=== PATIENT | male | born 1960 | race Two or more races ===

== ENCOUNTER 2018-08-12 13:20 | Inpatient (IN) | payer OTHER ==
[2018-08-12] MEDS ORDERED: IOHEXOL 350mgI/mL 150mL IV ONE (13:21)
[2018-08-12] MEDS ORDERED: Aspirin 81mg Chewable Tab PO STA (13:26)
[2018-08-12] MEDS ORDERED: Aspirin 81mg Chewable Tab ONE (13:35)
--- NOTE | 2018-08-12 13:35 | ED Physician Chart ---
ED Chief Complaint/HPI - Patient Information Date Seen:: 08/12/18 Chief Complaint:: Chest Pain History of Present Illness:: onset x one week of intermittent, sharp, exertional, pleuritic, MS type C/P, SOB , and diaphoresis; pt denies trauma, H/As, S/T, neck pain, cough, Abd. Pain, A/N /V/d/C, fever, chills, or urinary s/s Allergies:: Allergies Allergy/AdvReac Type Severity Reaction Status Date / Time amoxicillin Allergy Verified 02/27/16 12:30 Historian:: Patient Review:: Nurse's Note Reviewed ED Review of Systems - Review of Systems General/Constitutional: No fever, No chills, No weight loss, No weakness, No diaphoresis, No edema, No loss of appetite Skin: No skin lesions, No rash, No bruising Head: No headache, No light-headedness Eyes: No loss of vision, No pain, No diplopia ENT: No earache, No nasal drainage, No sore throat, No tinnitus Neck: No neck pain, No swelling, No thyromegaly, No stiffness, No mass noted Cardio Vascular: Chest pain, No palpitations, No PND, No orthopnea, No edema Pulmonary: SOB, No cough, No sputum, No wheezing GI: No nausea, No vomiting, No diarrhea, No pain, No melena, No hematochezia, No constipation, No hematemesis G/U: No dysuria, No frequency, No hematuria, No nacturia Musculoskeletal: No bone or joint pain, No back pain, No muscle pain Endocrine: No polyuria, No polydipsia Psychiatric: No prior psych history, No depression, No anxiety, No suicidal ideation, No homicidal ideation, No auditory hallucination, No visual hallucination Hematopoietic: No bruising, No lymphadenopathy Allergic/Immuno: No urticaria, No angioedema Neurological: No syncope, No focal symptoms, No weakness, No paresthesia, No headache, No seizure, No dizziness, No confusion, No vertigo ED Past Medical History - Past Medical History Obtainable: Yes Past Medical History: HTN, Other (Anxiety Disorder) Family History: Cancer Social History: Smoker, Alcohol, Illicit Drug Use, Surgical History: None Psychiatricy History: None Medication: Reviewed Family Medical History - Family Member Mother Living Status: Hx Family Cancer: No Hx Family Congestive Heart Failure: No Hx Family Stroke: No Hx Family Diabetes: No Hx Family COPD: No Hx Family Hepatitis: No ED Physical Exam - Physical Examination General/Constitutional: Awake, Well-developed, well-nourished, Alert, No distress, GCS 15, Non-toxic appearing, Ambulatory Head: Atraumatic Eyes: Lids, conjuctiva normal, PERRL, EOMI Skin: Nl inspection, No rash, No skin lesions, No ecchymosis, Well hydrated, No lymphadenopathy ENMT: External ears, nose nl, TM canals nl, Nasal exam nl, Lips, teeth, gums nl , Oropharynx nl, Tonsils nl Neck: Nontender, Full ROM w/o pain, No JVD, No nuchal rigidity, No bruit, No mass, No stridor Respiratory: Nl effort/Exclusion, Clear to Auscultation, No Wheeze/Rhonchi/Rales Cardio Vascular: RRR, No murmur, gallop, rubs, NL S1 S2, Carotid/Femoral/Distal pulses equal bilaterally GI: No tenderness/rebounding/guarding, No organomegaly, No hernia, Normal BS's, Nondistended, No mass/bruits, No McBurney tenderness Other GI comments:: no pulsatile masses : No CVA tenderness Extremities: No tenderness or effusion, Full ROM, normal strength in all extremities, No edema, Normal digits & nails Neuro/Psych: Alert/oriented, DTR's symmetric, Normal sensory exam, Normal motor strength, Judgement/insight normal, Mood normal, Normal gait, No focal deficits Misc: Normal back, No paraspinal tenderness ED Labs/Radiology/EKG Results - Lab Results Comments:: Reviewed - Radiology Results Comments:: CXR: CM; mild CHF; Chest CAT Scan: NAD - EKG Interpretations EKG Time:: 13:24 Rate & Rhythm: 83; NSR Comments:: old ASMI; non-specific st-t changes ED Septic Shock - . Is Septic Shock (SBP<90, OR Lactate>4 mmol\L) present?: No ED Reassessment (Disposition) - Reassessment Reassessment Condition:: Improved - Diagnosis Diagnosis:: Anemia; Hyponatremia; Hypokalemia; Chest Pain; Angina Pectoris; Atypical Chest Pain; Dyspnea; CHF; Hypertension; Diabetes Mellitus; Hyperglycemia - Aftercare/Follow up Instructions Aftercare/Follow-Up Instructions:: Counseled pt regarding lab results/diagnosis & need follow up, Counseled pt & family regarding lab results/diagnosis & need follow up - Patient Disposition Discharge/Transfer:: Acute Care w/in this hosp Accepting Physician:: Dr. Washington Time Called:: [id number] Time Responded:: 15:30 Admitted to:: Telemetry Spoke to:: Dr. Washington Admitting Medical Physician:: Dr. Washington Condition at Disposition:: Stable, Improved
[2018-08-12] MEDS ORDERED: NITROGLYCERIN OINT 2% 1 INCH PACKET TP STA (13:46)
[2018-08-12] MEDS ORDERED: Morphine Sulfate 2 mg/mL 1mL Syr IV STA ×2 (13:47→19:03)
[2018-08-12] MEDS ORDERED: NITROGLYCERIN OINT 2% 1 INCH PACKET TP ONE ×2 (13:47→13:50)
[2018-08-12] MEDS ORDERED: Morphine Sulfate 2 mg/mL 1mL Syr ONE ×2 (13:53→19:26)
[2018-08-12 13:55] LABS: BASOPHILE ABSOLUTE 0.5 Th/cumm (0-0.2); HEMATOCRIT 35.8 % (41.0-60); HEMOGLOBIN 11.4 gm/dL (12-16); LYMPHOCYTE ABSOLUTE 1.1 Th/cmm (1.5-3.0); MEAN CELL VOLUME 76.2 fl (80-99); MEAN CORPUSCULAR HEMOGLOBIN 24.3 pg (26.0-30.0); MEAN CORPUSCULAR HGB CONC 31.9 pg (28.0-36.0); MONOCYTE ABSOLUTE 0.2 Th/cmm (0.3-1.0); NEUTROPHILE ABSOLUTE 6.3 Th/cmm (1.8-8.0); PLATELET COUNT 193 Th/cmm (150-400); RED CELL DISTRIBUTION WIDTH 20.7 % (11.5-20.0); WHITE BLOOD COUNT 8.2 Th/cmm (4.8-10.8)
[2018-08-12 13:56] LABS: % BASOPHILS 5.9 % (0.0-2.0); % EOSINOPHILS 0.9 % (0.0-5.0); % MONOCYTES 2.6 % (2.0-10.0); % NEUTROPHILS 77.6 % (40.0-80.0)
--- NOTE | 2018-08-12 14:01 | Diagnostic Imaging Report ---
CHEST X-RAY: AP view INDICATION: pain COMPARISON: 07/19/2017 FINDINGS: Suboptimal lung bones are noted. There are increased interstitial lung markings. There is no focal consolidation or pleural effusions . Cardiomegaly is noted. Degenerative changes of the spine are noted. IMPRESSION: Increased interstitial lung markings. A mild degree of congestion cannot be excluded. There is faint infiltrate at the left base cannot be excluded. Cardiomegaly.
[2018-08-12 14:03] LABS: INR 0.97 (0.5-1.4); PROTHROMBIN TIME (TEST) 10.1 SECONDS (9.5-11.5)
[2018-08-12 14:06] LABS: BUN - UREA NITROGEN 6 mg/dL (7-25); CALCIUM SERUM 9.1 mg/dL (8.6-10.3); CHLORIDE 97 mEq/L (98-107); CHOLESTEROL 99 mg/dL (<200); CREATININE - SERUM 0.6 mg/dL (0.7-1.3); CREATININE KINASE 80 U/L (30-223); GFR AFRICAN-AMERICAN > 60.0 ml/min (>90); GFR NON AFRICAN-AMERICAN > 60.0 ml/min; GLUCOSE 200 mg/dL (70-105); HDL -HIGH DENSITY LIPOPROTEIN 57 mg/dL (23-92); SODIUM SERUM 135 mEq/L (136-145); TRIGLYCERIDES 40 mg/dL (<150)
[2018-08-12] MEDS ORDERED: Potassium Chloride 20 mEq ER Tab PO ONE ×2 (14:14→14:16)
[2018-08-12 14:22] LABS: DDIMER QUANT 759 ng/mL (100-400)
[2018-08-12 20:24] VITALS: BP 162/100
[2018-08-13 05:03] LABS: % BASOPHILS 0.5 % (0.0-2.0); % EOSINOPHILS 1.6 % (0.0-5.0); % LYMPHOCYTES 18.6 % (20.0-50.0); % MONOCYTES 7.3 % (2.0-10.0); EOSINOPHILE ABSOLUTE 0.1 Th/cmm (0.1-0.4); HEMATOCRIT 34.3 % (41.0-60); HEMOGLOBIN 10.8 gm/dL (12-16); LYMPHOCYTE ABSOLUTE 1.4 Th/cmm (1.5-3.0); MEAN CORPUSCULAR HGB CONC 31.6 pg (28.0-36.0); MEAN PLATELET VOLUME 9.5 fl; MONOCYTE ABSOLUTE 0.5 Th/cmm (0.3-1.0); NEUTROPHILE ABSOLUTE 5.4 Th/cmm (1.8-8.0); PLATELET COUNT 197 Th/cmm (150-400); RED BLOOD COUNT 4.52 Mil/cmm (4.30-5.70); RED CELL DISTRIBUTION WIDTH 21.5 % (11.5-20.0); WHITE BLOOD COUNT 7.4 Th/cmm (4.8-10.8)
[2018-08-13 05:09] LABS: ALB/GLOB RATIO 1.1 (1.0-1.8); ALBUMIN 3.3 gm/dL (4.2-5.5); ALKALINE PHOSPHATASE 143 U/L (34-104); ANION GAP 12.2 (7.0-16.0); BILIRUBIN,TOTAL 0.7 mg/dL (0.3-1.0); BUN - UREA NITROGEN 6 mg/dL (7-25); CALCIUM SERUM 9.1 mg/dL (8.6-10.3); CARBON DIOXIDE 29.3 mEq/L (21.0-31.0); CHLORIDE 99 mEq/L (98-107); CREATININE - SERUM 0.6 mg/dL (0.7-1.3); GFR AFRICAN-AMERICAN > 60.0 ml/min (>90); GFR NON AFRICAN-AMERICAN > 60.0 ml/min; GLUCOSE 127 mg/dL (70-105); POTASSIUM SERUM 3.5 mEq/L (3.5-5.1); SGOT 46 U/L (13-39); SGPT/ALT 31 U/L (7-52); SODIUM SERUM 137 mEq/L (136-145); TOTAL PROTEIN,SERUM 6.4 gm/dL (6.0-8.3)
[2018-08-13] MEDS ORDERED: Non-Formulary Item 1 EA (Alprazolam [Xanax*] 1 MG) PO PRN (07:19)
[2018-08-13] MEDS ORDERED: GABAPENTIN 800 MG PO PRN (07:19)
--- NOTE | 2018-08-13 07:32 | History and Physical ---
History of Present Illness - HPI Chief Complaint: chest pain HPI: 58 y/o male who presents to [facility] ER for onset x one week of intermittent, sharp, exertional, pleuritic, MS type C/P, SOB, and diaphoresis; pt denies trauma, H/As, S/T, neck pain, cough, Abd. Pain, A/N/V/d/C, fever, chills, or urinary s/s. PMH includes HTN, Anxiety Disorder, Initial labwork done in the ER CBC 8.2 H/H 11.4/35.8 platelets 193K Na 135 K 3.0 Bun/Cr 6/0.6 glu 200 CK 80 trop 0.02 BNP 180 chol 99 LDL 28 HDL 57 trig 99 Patient was subsequently admitted for further evaluation and treatment. Vital Signs: Last Vital Signs Temp 96.4 F 08/13/18 04:00 Pulse 73 08/13/18 04:00 Resp 18 08/13/18 04:00 BP 172/101 08/13/18 04:00 Pulse Ox 98 08/13/18 04:00 Past Medical History Cardiovascular: Report: HTN Pulmonary: Report: No Pertinent Hx ATMOSPHERIC PHYSICIST: Report: No Pertinent Hx GI: Report: No Pertinent Hx Psych: Report: Anxiety Musculoskeletal: Report: No Pertinent Hx Rheumatologic: Report: No pertinent Hx Infectious Disease: Report: No Pertinent Hx Renal/: Report: No Pertinent Hx Endocrine: Report: No Pertinent Hx Dermatology: Report: No Pertinent Hx Family Medical History - Family Member Mother History Unknown: Yes Living Status: Hx Family Cancer: No Hx Family Congestive Heart Failure: No Hx Family Stroke: No Hx Family Diabetes: No Hx Family COPD: No Hx Family Hepatitis: No Social History Smoke: No Alcohol: None Drugs: None Lives: Alone - Medications Home Medications: Home Medication Medication Instructions Recorded Type Alprazolam [Xanax*] 1 mg PO TID PRN 08/12/18 History Duloxetine HCl [Cymbalta] 60 mg PO DAILY 08/12/18 History Gabapentin [Neurontin] 800 mg PO QID PRN 08/12/18 History Ibuprofen [Advil*] 200 mg PO Q6HR PRN 08/12/18 History Losartan Potassium [Cozaar] 100 mg PO DAILY 08/12/18 History Zolpidem Tartrate 10 mg PO HS 08/12/18 History - Allergies Allergies/Adverse Reactions: Allergies Allergy/AdvReac Type Severity Reaction Status Date / Time amoxicillin Allergy Verified 08/12/18 13:30 Review of Systems - Review of Systems Constitutional: Report: No Significant Eyes: Report: No Significant ENT: Report: No Significant Respiratory: Report: No Significant Cardiovascular: Report: Chest Pain Gastrointestinal: Report: No Significant Genitourinary: Report: No Significant Musculoskeletal: Report: No Significant Skin: Report: No Significant Neurological: Report: No Significant Physical Exam - Physical Exam HEENT: Report: Ears Nose Throat within normal limits, Pharnyx within normal limits Neck: Report: Within normal limits Cardiovascular Systems: Report: +s1/s2 noted, Regular, Rate and Rhythm Respiratory: Report: Breath Sounds are within normal limits Abdomen: Report: Non-tender to palpation Extremities: Report: Non-tender to palpation. - Lab Results All Lab Results last 24 hours: Laboratory Results - last 24 hr 08/12/18 08/12/18 08/12/18 13:45 13:45 13:45 WBC 8.2 RBC 4.70 Hgb 11.4 L Hct 35.8 L MCV 76.2 L MCH 24.3 L MCHC Differential 31.9 RDW 20.7 H Plt Count 193 MPV 10.0 Neutrophils % 77.6 Lymphocytes % 13.0 L Monocytes % 2.6 Eosinophils % 0.9 Basophils % 5.9 H PT 10.1 INR 0.97 D-Dimer 759 H Sodium 135 L Potassium 3.0 L Chloride 97 L Carbon Dioxide 27.0 Anion Gap 14.0 BUN 6 L Creatinine 0.6 L Est GFR ( Amer) > 60.0 Est GFR (Non-Af Amer) > 60.0 BUN/Creatinine Ratio 10.0 Glucose 200 H Calcium 9.1 Total Bilirubin AST ALT Alkaline Phosphatase Creatine Kinase 80 Troponin I B-Natriuretic Peptide Total Protein Albumin Globulin Albumin/Globulin Ratio Triglycerides 40 Cholesterol 99 LDL Cholesterol Direct 28 L HDL Cholesterol 57 08/12/18 08/12/18 08/12/18 13:45 13:45 21:38 WBC RBC Hgb Hct MCV MCH MCHC Differential RDW Plt Count MPV Neutrophils % Lymphocytes % Monocytes % Eosinophils % Basophils % PT INR D-Dimer Sodium Potassium Chloride Carbon Dioxide Anion Gap BUN Creatinine Est GFR ( Amer) Est GFR (Non-Af Amer) BUN/Creatinine Ratio Glucose Calcium Total Bilirubin AST ALT Alkaline Phosphatase Creatine Kinase Troponin I 0.02 0.02 B-Natriuretic Peptide 180.0 H Total Protein Albumin Globulin Albumin/Globulin Ratio Triglycerides Cholesterol LDL Cholesterol Direct HDL Cholesterol 08/13/18 08/13/18 08/13/18 04:43 04:43 04:43 WBC 7.4 RBC 4.52 Hgb 10.8 L Hct 34.3 L MCV 76.0 L MCH 24.0 L MCHC Differential 31.6 RDW 21.5 H Plt Count 197 MPV 9.5 Neutrophils % 72.0 Lymphocytes % 18.6 L Monocytes % 7.3 Eosinophils % 1.6 Basophils % 0.5 PT INR D-Dimer Sodium 137 Potassium 3.5 Chloride 99 Carbon Dioxide 29.3 Anion Gap 12.2 BUN 6 L Creatinine 0.6 L Est GFR ( Amer) > 60.0 Est GFR (Non-Af Amer) > 60.0 BUN/Creatinine Ratio 10.0 Glucose 127 H Calcium 9.1 Total Bilirubin 0.7 AST 46 H ALT 31 Alkaline Phosphatase 143 H Creatine Kinase Troponin I 0.02 B-Natriuretic Peptide Total Protein 6.4 Albumin 3.3 L Globulin 3.1 Albumin/Globulin Ratio 1.1 Triglycerides Cholesterol LDL Cholesterol Direct HDL Cholesterol - Assessment Assessment: Chest pain r/o ACS HTN Insomnia Anxiety disorder - Plan Plan: cardiology consult repeat troponin q8 x 2 repeat CBC,CMP TSH,HbA1c
--- NOTE | 2018-08-13 08:06 | Diagnostic Imaging Report ---
CT Chest pulmonary embolus study Indication: Chest pain, dyspnea, rule out pulmonary embolus Comparison: Chest x-ray earlier the same day, Technique: Axial images were obtained from the base of the neck to the upper abdomen, following administration of IV contrast, PE protocol. Multiplanar reconstructions were made. total DLP: 350, [id number] FINDINGS: Few Mildly prominent mediastinal lymph nodes and right hilar lymph node is noted the largest along the right hilar region measuring 1.5 x 0.7 cm. No evidence of an aortic aneurysm. Mild atherosclerosis is noted including Coronary artery atherosclerotic vascular disease. Heart size is normal. No pericardial effusion. Assessment of the pulmonary arterial vasculature demonstrates no evidence of pulmonary embolus. Evaluation of the lungs demonstrate mild chronic lung changes with hypoventilatory and atelectatic changes. A few faint nodular 1 to 2 mm infiltrates are noted. No focal consolidation or pleural effusions. The upper abdomen demonstrates mild atherosclerosis. Degenerative changes of the spine are noted. IMPRESSION: No evidence of a pulmonary embolus. Few faint 1 to 2 mm nodular infiltrates, nonspecific and probably due to infectious or inflammatory process. Clinical correlation and follow-up is suggested. A few mildly prominent mediastinal lymph nodes and right hilar lymph node, nonspecific and possibly reactive. Consider follow-up surveillance to ensure long-term stability. Mild atherosclerosis including coronary artery calcifications.
[2018-08-13] MEDS ORDERED: Non-Formulary Item 1 EA (Losartan Potassium [Cozaar] 100 MG) PO SCH (09:00)
[2018-08-13] MEDS ORDERED: Non-Formulary Item 1 EA (Duloxetine Hcl [Cymbalta] 60 MG) PO SCH (09:00)
[2018-08-13 11:23] LABS: AMPHETAMINE URINE NEGATIVE (NEGATIVE); BARBITURATES URINE NEGATIVE (NEGATIVE); BENZODIAZEPINES QUAL URINE POSITIVE (NEGATIVE); CANNABINOID THC POSITIVE (NEGATIVE); COCAINE METABOLITE QUAL URINE NEGATIVE (NEGATIVE); METHADONE URINE NEGATIVE (NEGATIVE); METHAMPHETAMINES QUAL URINE NEGATIVE (NEGATIVE); OPIATES (MORPHINE) QUAL. URINE POSITIVE (NEGATIVE); PHENCYCLIDINE (PCP) URINE NEGATIVE (NEGATIVE); TRICYCLICS (TCA) QUAL. URINE NEGATIVE (NEGATIVE)
--- NOTE | 2018-08-13 18:42 | Consultation ---
DATE OF CONSULTATION: 08/13/[address] Chava Bauman. HISTORY OF PRESENT ILLNESS: This is a 58-year-old male patient who has been complaining of pain in the chest, more of muscular pain, increases with deep breathing and movement. Following this, the patient came to the Emergency Room and the patient is admitted. PAST MEDICAL HISTORY: Hypertension, insomnia, and anxiety disorder. FAMILY HISTORY: Unremarkable. SOCIAL HISTORY: The patient has a history of smoking. ALLERGIES: None. PHYSICAL EXAMINATION: VITAL SIGNS: Blood pressure 130/80, pulse 70, and respirations 20. HEAD: Normocephalic. No lumps or bumps. EYES: Pupils equal, reactive to light. Fundi show AV nicking, sclerae white, conjunctivae pink. NECK: Carotid 2+. Normal upstroke. JVD flat. Thyroid not palpable. Lymph nodes not palpable. CHEST: Shows increased AP diameter. No kyphosis, scoliosis. LUNGS: Bilateral bronchovesicular breath sounds. Occasional wheeze. No rales. HEART: PMI fifth intercostal space with lateral to midclavicular line. S1, S2. No S3, S4, soft systolic murmur. ABDOMEN: Soft. Liver, spleen not palpable. No organomegaly. Bowel sounds active. NEUROLOGIC: Unremarkable. EXTREMITIES: Peripheral pulses 2+. No pedal edema. CLINICAL IMPRESSION: Chest pain, rule out coronary artery disease unlikely, hypertension, anxiety, chest wall pain. PLAN: Admit the patient. We will get troponin level, EKG, echocardiogram. [facility]# [id number]
[2018-08-13] MEDS: Morphine Sulfate 2 mg/mL 1mL Syr IVP PRN (20:33)
[2018-08-13] MEDS ORDERED: ZOLPIDEM TARTRATE 10 MG PO SCH (21:00)
--- NOTE | 2018-08-14 07:38 | General Progress Note ---
Subjective - Review of Systems Service Date: 08/14/18 Subjective: Patient was seen and examined. States that his side is better today. Less painful. He describes the pain to be more muscleskeletal in origin. Hurts when coughing. Objective - Results Result Diagrams: 08/13/18 04:43 08/13/18 04:43 Recent Labs: Laboratory Last Values WBC 7.4 Th/cmm (4.8-10.8) 08/13/18 04:43 RBC 4.52 Mil/cmm (4.30-5.70) 08/13/18 04:43 Hgb 10.8 gm/dL (12-16) L 08/13/18 04:43 Hct 34.3 % (41.0-60) L 08/13/18 04:43 MCV 76.0 fl (80-99) L 08/13/18 04:43 MCH 24.0 pg (26.0-30.0) L 08/13/18 04:43 MCHC Differential 31.6 pg (28.0-36.0) 08/13/18 04:43 RDW 21.5 % (11.5-20.0) H 08/13/18 04:43 Plt Count 197 Th/cmm (150-400) 08/13/18 04:43 MPV 9.5 fl 08/13/18 04:43 Neutrophils % 72.0 % (40.0-80.0) 08/13/18 04:43 Lymphocytes % 18.6 % (20.0-50.0) L 08/13/18 04:43 Monocytes % 7.3 % (2.0-10.0) 08/13/18 04:43 Eosinophils % 1.6 % (0.0-5.0) 08/13/18 04:43 Basophils % 0.5 % (0.0-2.0) 08/13/18 04:43 PT 10.1 SECONDS (9.5-11.5) 08/12/18 13:45 INR 0.97 (0.5-1.4) 08/12/18 13:45 D-Dimer 759 ng/mL (100-400) H 08/12/18 13:45 Sodium 137 mEq/L (136-145) 08/13/18 04:43 Potassium 3.5 mEq/L (3.5-5.1) 08/13/18 04:43 Chloride 99 mEq/L (98-107) 08/13/18 04:43 Carbon Dioxide 29.3 mEq/L (21.0-31.0) 08/13/18 04:43 Anion Gap 12.2 (7.0-16.0) 08/13/18 04:43 BUN 6 mg/dL (7-25) L 08/13/18 04:43 Creatinine 0.6 mg/dL (0.7-1.3) L 08/13/18 04:43 Est GFR ( Amer) > 60.0 ml/min (>90) 08/13/18 04:43 Est GFR (Non-Af Amer) > 60.0 ml/min 08/13/18 04:43 BUN/Creatinine Ratio 10.0 08/13/18 04:43 Glucose 127 mg/dL (70-105) H 08/13/18 04:43 Calcium 9.1 mg/dL (8.6-10.3) 08/13/18 04:43 Total Bilirubin 0.7 mg/dL (0.3-1.0) 08/13/18 04:43 AST 46 U/L (13-39) H 08/13/18 04:43 ALT 31 U/L (7-52) 08/13/18 04:43 Alkaline Phosphatase 143 U/L (34-104) H 08/13/18 04:43 Creatine Kinase 80 U/L (30-223) 08/12/18 13:45 Troponin I 0.02 ng/mL (0.01-0.05) 08/13/18 04:43 B-Natriuretic Peptide 180.0 pg/mL (5.0-100.0) H 08/12/18 13:45 Total Protein 6.4 gm/dL (6.0-8.3) 08/13/18 04:43 Albumin 3.3 gm/dL (4.2-5.5) L 08/13/18 04:43 Globulin 3.1 gm/dL 08/13/18 04:43 Albumin/Globulin Ratio 1.1 (1.0-1.8) 08/13/18 04:43 Triglycerides 40 mg/dL (<150) 08/12/18 13:45 Cholesterol 99 mg/dL (<200) 08/12/18 13:45 LDL Cholesterol Direct 28 mg/dL (75-193) L 08/12/18 13:45 HDL Cholesterol 57 mg/dL (23-92) 08/12/18 13:45 TSH 1.17 uIU/ml (0.34-5.60) 08/13/18 04:43 Urine Opiates Screen POSITIVE (NEGATIVE) H 08/13/18 09:50 Urine Methadone Screen NEGATIVE (NEGATIVE) 08/13/18 09:50 Ur Barbiturates Screen NEGATIVE (NEGATIVE) 08/13/18 09:50 Ur Tricyclics Screen NEGATIVE (NEGATIVE) 08/13/18 09:50 Ur Phencyclidine Scrn NEGATIVE (NEGATIVE) 08/13/18 09:50 Amphetamines Screen NEGATIVE (NEGATIVE) 08/13/18 09:50 U Methamphetamines Scrn NEGATIVE (NEGATIVE) 08/13/18 09:50 U Benzodiazepines Scrn POSITIVE (NEGATIVE) H 08/13/18 09:50 U Cocaine Metab Screen NEGATIVE (NEGATIVE) 08/13/18 09:50 U Cannabinoids Screen POSITIVE (NEGATIVE) H 08/13/18 09:50 - Physical Exam Vitals and I&O: Vital Signs Temp 97.8 F 08/14/18 04:00 Pulse 69 08/14/18 04:00 Resp 19 08/14/18 04:00 BP 170/86 08/14/18 04:00 Pulse Ox 96 08/14/18 00:00 Intake & Output 08/13/18 08/14/18 08/14/18 18:59 06:59 18:59 Intake Total 1600 60 Balance 1600 60 Weight (lbs) 88.451 kg 88.723 kg Intake: Oral 1600 60 Other: # Voids 4 5 # Bowel Movements 1 0 Weight Source Bedscale Bedscale Active Medications: Current Medications Alprazolam (Xanax) 1 mg PO TID PRN; Protocol PRN Reason: Anxiety Stop: 10/12/18 00:33 Last Admin: 08/14/18 00:42 Dose: 1 mg Amlodipine Besylate (Norvasc) 5 mg PO DAILY FAHAD Stop: 10/12/18 08:59 Last Admin: 08/13/18 08:30 Dose: 5 mg Duloxetine HCl (Cymbalta) 60 mg PO DAILY FAHAD Stop: 10/12/18 08:59 Last Admin: 08/13/18 08:29 Dose: 60 mg Gabapentin (Neurontin) 800 mg PO QID PRN PRN Reason: NERVE PAIN Stop: 10/12/18 07:57 Last Admin: 08/13/18 17:51 Dose: 800 mg Ibuprofen (Advil) 200 mg PO Q6HR PRN PRN Reason: Pain (Mild) Stop: 10/12/18 07:18 Losartan Potassium (Cozaar) 100 mg PO DAILY FAHAD Stop: 10/12/18 08:59 Last Admin: 08/13/18 08:30 Dose: 100 mg Morphine Sulfate (Morphine) 1 mg IVP Q4HR PRN PRN Reason: Chest Pain Stop: 10/12/18 07:29 Last Admin: 08/13/18 20:33 Dose: 1 mg Tramadol HCl (Ultram) 50 mg PO Q6HR PRN PRN Reason: Pain (Moderate) Stop: 10/12/18 08:20 Last Admin: 08/13/18 11:39 Dose: 50 mg Zolpidem Tartrate (Ambien) 10 mg PO HS PRN PRN Reason: Insomnia Stop: 10/12/18 00:32 Last Admin: 08/13/18 00:48 Dose: 10 mg Zolpidem Tartrate (Ambien) 10 mg PO HS FAHAD Stop: 10/12/18 20:59 Last Admin: 08/13/18 20:14 Dose: 10 mg General: Alert, No acute distress HEENT: Atraumatic, PERRLA, EOMI Neck: Supple Cardiovascular: Regular rate, Normal S1, Normal S2 Lungs: Clear to auscultation Abdomen: Bowel sounds Extremities: no Clubbing, no Cyanosis, no Edema Neurological: Normal gait Assessment/Plan - Assessment Assessment: Chest pain r/o ACS acute Bronchitis/URI HTN Insomnia Anxiety disorder neuropathy seizure disorder costochondritis - Plan Plan: cardiology consult repeat troponin q8 x 2 repeat CBC,CMP TSH,HbA1c Nutritional Asmnt/Malnutr-PDOC - Dietary Evaluation Malnutrition Findings (Please click <Entered> for more info): Nutritional Asmnt/Malnutrition Start: 08/13/18 15: 47 Text: Status: Complete Freq: Protocol: Document 08/13/18 15:47 SHREYA (Rec: 08/13/18 16:10 SHREYA [facility]) Nutritional Asmnt/Malnutrition Patient General Information Nutritional Screening High Risk Consult Diagnosis chest pain r/o acs Pertinent Medical Hx/Surgical Hx HTN, anxiety disorder Subjective Information Consult received for elevated glucose. Glucose 200 at admission noted. Pt seen sitting up in bed at time of visit, AO x 4. Pt stated he is not hungry at this time, only had 25% of lunch and no breakfast today. Offered sandwich in the afternoon and pt accepted. Food preference provided to RD. Pt stated his usual body wt was 200, lost few pounds d/t poor appeite. Current Diet Order/ Nutrition Support cardiac Pertinent Medications reviewed Pertinent Labs 08/13 BUN 6, Cr 0.6, glucose 127, alb 3.3 08/12 glucose 200 Nutritional Hx/Data Height 1.52 m Height (Calculated Centimeters) 152.4 Current Weight (lbs) 87.09 kg Weight (Calculated Kilograms) 87.1 Weight (Calculated Grams) 61431.7 Usual body Weight (lbs) [address] [employer] Body Weight 166 Body Mass Index (BMI) 37.5 Weight Status Obese GI Symptoms GI Symptoms None Last BM not indicated Difficult in: None Usual diet at home eat at home, usually two meals daily Skin Integrity/Comment: intact, dyness, bruise Current %PO Poor (25-49%) Estimated Nutritional Goals BEE in Kcals: Adj wt of IBW Calories/Kcals/Kg 25-30 Kcals Calculated 6965-7729 Protein: Adj wt of IBW Protein g/k.8 Protein Calculated 62 Fluid: ml 1950-2340ml (1ml/kcal) Nutritional Problem 1. Problem Problem inadequate food intake Etiology decreased appetite Signs/Symptoms: PO intake 25% Malnutrition Alert Is there a minimum of two criteria No selected? Query Text:Check all the applicable criteria. A minimum of two criteria are recommended for diagnosis of either severe or non-severe malnutrition. Malnutrition Related to Morbid Obesity Malnutrition related to morbid obesity No Intervention/Recommendation Comments 1. Continue with cardiac diet as ordered. food preference updated. glucose level improved, no need for CCHO diet at this time, will keep monitoring. 2. Monitor PO intake, wt, labs and skin integrity 3. F/U as high risk in 2-3 days Expected Outcomes/Goals Expected Outcomes/Goals 1. PO intake to improve and meet at least 75% of nutritional needs. 2. Wt stability, skin to remain intact, labs to approach WNL.
[2018-08-14] MEDS ORDERED: Promethazine DM 6.25/15mg-5mL 5 ML SYR PO PRN (07:40)
[2018-08-14] MEDS: Morphine Sulfate 2 mg/mL 1mL Syr IVP PRN (16:41)
--- NOTE | 2018-08-14 20:15 | Cardiology ---
08/14/[address] Chava Bauman. PROCEDURE: Echocardiogram. M-MODE ECHOCARDIOGRAM: Mitral valve, anterior leaflet of mitral valve shows normal excursion, EF velocity. Posterior leaflet of the mitral valve shows normal excursion. Left ventricular posterior wall shows increased thickness, normal excursion. Interventricular septum shows increased thickness, normal excursion, hypertrophy of the left ventricle, ejection fraction 70%. Left atrium normal. Aortic root shows normal dimension, normal excursion of aortic leaflets. CONCLUSION: Hypertrophy of the left ventricle, ejection fraction 70%. 2D ECHO: Long axis view show normal size left ventricle with hypertrophy of the left ventricle. Left atrium normal. Aortic root shows normal dimension, normal excursion of aortic leaflets. Short axis view of mitral valve normal. Short axis view of aortic valve normal. Apical four chamber view showed normal sized left ventricle with hypertrophy of the left ventricle. Left atrium normal. Right ventricular cavity, right atrium normal, no pericardial effusion. CONCLUSION: Hypertrophy of the left ventricle, ejection fraction 70%. Doppler study shows mild mitral regurgitation, trace tricuspid regurgitation. JOB# [id number]
--- NOTE | 2018-08-14 22:30 | Consultation ---
DATE OF CONSULTATION: 08/14/[address] Decker. Case was discussed with staff of the patient, reviewed records. HISTORY OF PRESENT ILLNESS: This is a 58-year-old male who was admitted on 08/12/2018, because of chest pain, anxiety. The patient was in anyway reasonable historian though he was somewhat sarcastic at times. Apparently, he has a history of anxiety. He was seen by the psychiatrist before. He reports that he sleeps well, eats well. He has been given Xanax and currently given by his medical doctor. The patient denies any current intent to harm himself or anybody. Denies auditory or visual hallucination or paranoia. He sleeps well, eats well. He is currently on Cymbalta 60 mg daily, gabapentin 800 mg 4 times a day for nerve pain, and Xanax 1 mg 3 times a day as needed. The patient denies any auditory or visual hallucination or paranoia. He denies any substance abuse. PAST PSYCHIATRIC HISTORY: He was seen by a psychiatrist in the past because of anxiety he was given Xanax. He denies prior suicide attempt or prior hospitalization. He saw his doctor, ____, who gave him the Xanax. Currently seen by a psychiatrist. Never had any suicidal ideation. He has episodes of feeling depressed off and on, but nothing major. He has never been hospitalized. ALLERGIES: THE PATIENT IS ALLERGIC TO AMOXICILLIN. MEDICAL HISTORY: The patient was admitted with chest pain, diagnosed with hypertension, insomnia, and anxiety disorder. FAMILY AND SOCIAL HISTORY: The patient is for 40 years, has three boys. He has high school education, used to work as a contractor. He has not worked since 2003 because he was in an accident ____. Since he stayed home there has been some episodes of depression, but nothing major. He believes there maybe family history of mental illness, he is not sure what it is. His is 52 years of age. He reports that he has been on Cymbalta and that has been helping him at times. He denies any legal problems. He sometimes drink alcohol, but socially. MENTAL STATUS EXAMINATION: The patient is appropriately dressed in hospital gown. He was alert. He was able to tell me the date that it is 08/13/2018. He knew he was in the hospital. He knows why he is in the hospital. His mood is depressed. Affect is sad. Thoughts are clear. Speech clear. He denies any intent to harm himself or anybody. Reports sleep well and eats well. He denies any intent to harm himself or anybody. He seems to have average intelligence. Long and short term was intact. Insight and judgment is fair. IMPRESSION: Major depression, recurrent, moderate, with no psychosis; generalized anxiety disorder. MEDICAL DIAGNOSES: As per medical doctor. PLAN: Recommend to increase the Cymbalta. The patient needs follow up with the psychiatrist upon discharge. Thank you very much for allowing me to participate in the care of this most interesting gentleman. JOB# [id number]
--- NOTE | 2018-08-16 07:49 | Discharge Summary ---
DATE OF DISCHARGE: 08/14/2018 PRELIMINARY DIAGNOSES: 1. Chest pain, rule out acute coronary syndrome. 2. Acute bronchitis. 3. Hypertension. 4. Insomnia. 5. Anxiety disorder. 6. Neuropathy. 7. Seizure disorder. 8. Costochondritis. DISCHARGE DIAGNOSES: 1. Chest pain, rule out acute coronary syndrome. 2. Acute bronchitis. 3. Hypertension. 4. Insomnia. 5. Anxiety disorder. 6. Neuropathy. 7. Seizure disorder. 8. Costochondritis. BRIEF HISTORY OF PRESENT ILLNESS: This is a 58-year-old male, who presents to [facility] ER for acute onset of sharp pleuritic exertional chest pain for the past week, musculoskeletal-type chest pain, shortness of breath and diaphoresis. The patient has a history of hypertension, anxiety disorder, no headaches, denies any trauma, denies any neck pain or cough, but admits to chest tenderness. The patient has a history of hypertension only, but also has a history of anxiety, also has a history of seizure disorder which he takes medications from his regular physician. The patient had initial lab work done in the ER, which revealed a white count of 8.2, hemoglobin 11.4, hematocrit 35.8 and platelets 193. Sodium was 135, potassium was 3.0, BUN is 6, creatinine 0.6, glucose 200. CK was 80. Troponin 0.02. BNP 180. Cholesterol 99, LDL 28, HDL 57, triglycerides 99. The patient was then subsequently admitted for further evaluation and treatment. HOSPITAL COURSE: The patient was seen and evaluated by Cardiology, please see dictated report. Repeat troponin levels remained normal throughout his stay. Chest x-ray initially done through the ER revealed some increased interstitial markings with a faint infiltrate at the left base. The patient is a known smoker, was started on Z-XAVI and given cough syrup through his stay. Chest pain improved, more pleuritic in nature, musculoskeletal in nature, was subsequently discharged in stable condition, given a course of antibiotics to take and to follow up with his regular physician. [facility]# [id number]
== END 2018-08-14 17:00 | disposition home or self-care (01) | DRG 206 ==
LOC: ER 13:20 → TELE 18:33
PROVIDERS: ADMIT Family Medicine; ATTEND Family Medicine
DX: M94.0 Chondrocostal junction syndrome [Tietze] (principal); I24.9 Acute ischemic heart disease, unspecified; F33.2 Major depressive disorder, recurrent severe without psychotic features; J20.9 Acute bronchitis, unspecified; G47.00 Insomnia, unspecified; G62.9 Polyneuropathy, unspecified; F17.210 Nicotine dependence, cigarettes, uncomplicated; D64.9 Anemia, unspecified; E86.0 Dehydration; E87.6 Hypokalemia; I11.0 Hypertensive heart disease with heart failure; I50.9 Heart failure, unspecified; E11.65 Type 2 diabetes mellitus with hyperglycemia; G40.909 Epilepsy, unspecified, not intractable, without status epilepticus; F41.1 Generalized anxiety disorder; Z88.1 Allergy status to other antibiotic agents
CPT/HCPCS: 36415-UA; 71045-TC; 71275-TC; 80048-TC; 80053-TC; 80061-TC; 80307; 82550-TC; 83036-90; 83880-TC; 84443-TC; 84484-TC; 85025-TC; 85379-TC; 85610-TC; 93005; 96374; J2270; Z7610